=== PATIENT | female | born 1990 | race African-American/Black ===

== ENCOUNTER 2022-12-08 13:22 | Emergency (ER) | payer BC ==
[~2022-12-08] VITALS: Ht 162.6 cm; Wt 54.0 kg
[2022-12-08 16:07] VITALS: BP 148/78
== END 2022-12-08 16:57 | disposition home or self-care (01) ==
LOC: ER 13:22
DX: F43.0 Acute stress reaction (principal)
CPT/HCPCS: 99281

== ENCOUNTER 2023-04-25 05:42 | Emergency (ER) | payer BC ==
[~2023-04-25] VITALS: Ht 165.1 cm; Wt 53.0 kg
[2023-04-25 06:41] VITALS: BP 146/73; PULSE 91; RESP 19; TEMP 98; O2SAT 100
[2023-04-25] MEDS ORDERED: TETRACAINE 0.5% OPHTH DROPS 4ML RIGHTEYE ONE (08:15)
[2023-04-25] MEDS ORDERED: FLUORESCEIN SODIUM 1MG/STRIP RIGHTEYE ONE (08:15)
[2023-04-25] MEDS ORDERED: TOPUD PO (09:48)
[2023-04-25] MEDS ORDERED: HOMA5DRO8 RIGHTEYE (09:48)
[2023-04-25] MEDS ORDERED: PRED5DRO22 RIGHTEYE (09:48)
== END 2023-04-25 10:03 | disposition home or self-care (01) ==
LOC: ER 05:49
DX: H57.11 Ocular pain, right eye (principal); Y04.0XXA Assault by unarmed brawl or fight, initial encounter; Y93.89 Activity, other specified; Y92.89 Other specified places as the place of occurrence of the external cause; Y99.8 Other external cause status
CPT/HCPCS: 70486; 81025; 99284